=== PATIENT | female | born 1980 | race Caucasian/White ===

== ENCOUNTER 2019-03-18 12:03 | Outpatient (CLI) | payer OTHER, SELFPAY ==
[2019-03-18 13:37] LABS: Free T4 Free Thyroxine 0.81 ng/mL (0.78-2.19)
[2019-03-21 03:40] LABS: Thyroid Peroxidase Antibodies 3 IU/mL (<9)
[2019-03-21 06:18] LABS: Triiodothyronine T3 Free 2.3 pg/mL (2.3-4.2)
[2019-03-21 14:57] LABS: Thyroid Stimulating Immunoglob <89 % baseline (<140)
== END 2019-03-18 12:04 | disposition home or self-care (01) ==
PROVIDERS: Visit Provider Internal Medicine Endocrinology, Diabetes & Metabolism
DX: E06.3 Autoimmune thyroiditis (principal)
CPT/HCPCS: 36415; 84439; 84443; 84445; 84481; 86376

== ENCOUNTER 2019-07-28 10:39 | Outpatient (CLI) | payer OTHER, SELFPAY ==
[2019-07-28 11:54] LABS: Alanine Aminotransferase 26 U/L (4-35); Albumin Level 4.4 g/dL (3.5-5.1); Alkaline Phosphatase 60 U/L (38-126); Aspartate Amino Transferase 24 U/L (14-36); Blood Urea Nitrogen 15 mg/dL (7-17); Calcium 9.2 mg/dL (8.4-10.2); Carbon Dioxide 28 mmol/L (22-30); Chloride 104 mmol/L (98-107); Estimated Glomerular Filt Rate > 60; Glucose 103 mg/dL (65-105); Potassium 4.1 mmol/L (3.4-5.0); Sodium 138 mmol/L (137-145)
[2019-07-28 13:05] LABS: Free T4 Free Thyroxine 0.75 ng/mL (0.78-2.19)
[2019-07-30 03:58] LABS: Thyroid Peroxidase Antibodies 3 IU/mL (<9)
[2019-07-30 04:40] LABS: Triiodothyronine T3 Free 2.6 pg/mL (2.3-4.2)
[2019-08-01 13:55] LABS: Thyroid Stimulating Immunoglob <89 % baseline (<140)
== END 2019-07-28 10:40 | disposition home or self-care (01) ==
PROVIDERS: PCP Internal Medicine Endocrinology, Diabetes & Metabolism; Visit Provider Internal Medicine Endocrinology, Diabetes & Metabolism
DX: E06.3 Autoimmune thyroiditis (principal)
CPT/HCPCS: 36415; 80053; 84439; 84443; 84445; 84481; 86376

== ENCOUNTER 2020-03-10 09:57 | Outpatient (CLI) | payer SELFPAY ==
[2020-03-10 11:07] LABS: Alanine Aminotransferase 13 U/L (4-35); Albumin Level 3.9 g/dL (3.5-5.1); Alkaline Phosphatase 46 U/L (38-126); Anion Gap 5 mmol/L (8-16); Aspartate Amino Transferase 20 U/L (14-36); Bilirubin,Total 0.6 mg/dL (0.2-1.3); Blood Urea Nitrogen 11 mg/dL (7-17); Calcium 8.8 mg/dL (8.4-10.2); Carbon Dioxide 27 mmol/L (22-30); Chloride 107 mmol/L (98-107); Estimated Glomerular Filt Rate > 60; Glucose 101 mg/dL (65-105); Potassium 4.3 mmol/L (3.4-5.0); Sodium 139 mmol/L (137-145)
[2020-03-10 11:26] LABS: Free T4 Free Thyroxine 0.85 ng/mL (0.78-2.19)
[2020-03-10 12:22] LABS: Folic Acid > 20.0 ng/mL (2.76->20)
[2020-03-13 11:31] LABS: Triiodothyronine T3 Free 2.7 pg/mL (2.3-4.2)
== END 2020-03-10 09:58 | disposition home or self-care (01) ==
LOC: ANHLAB 09:59
PROVIDERS: PCP Internal Medicine Endocrinology, Diabetes & Metabolism; Visit Provider Internal Medicine Endocrinology, Diabetes & Metabolism
DX: E03.9 Hypothyroidism, unspecified (principal)
CPT/HCPCS: 36415; 80053; 82607; 82746; 84439; 84443; 84481

== ENCOUNTER 2020-06-23 10:25 | Outpatient (CLI) | payer BC, SELFPAY ==
[2020-06-23 11:55] LABS: Free T4 Free Thyroxine 1.03 ng/mL (0.78-2.19)
[2020-06-23 12:09] LABS: Thyroid Stimulating Hormone 0.721 uIU/mL (0.465-4.680)
[2020-06-23 12:44] LABS: Folic Acid 15.9 ng/mL (2.76->20)
[2020-06-26 16:44] LABS: Triiodothyronine T3 Free 2.6 pg/mL (2.3-4.2)
[2020-06-26 21:32] LABS: Thyroid Peroxidase Antibodies 4 IU/mL (<9)
[2020-06-29 14:39] LABS: Thyroid Stimulating Immunoglob <89 % baseline (<140)
== END 2020-06-23 10:26 | disposition home or self-care (01) ==
PROVIDERS: Visit Provider Nurse Practitioner Family
DX: E53.8 Deficiency of other specified B group vitamins (principal); E02 Subclinical iodine-deficiency hypothyroidism
CPT/HCPCS: 36415; 82607; 82746; 84439; 84443; 84445; 84481; 86376

== ENCOUNTER 2020-07-21 09:15 | Outpatient (CLI) | payer BC, SELFPAY ==
[2020-07-21 09:52] LABS: Basophils Percent Auto 0.4 % (0.2-1.2); Eosinophils Absolute Auto 0.1 K/mm3 (0-0.3); Eosinophils Percent Auto 1.3 % (0-4.4); Hematocrit 38.8 % (37.0-47.0); Hemoglobin 13.2 g/dL (12.0-15.0); Immature Granulocyte Absolute 0.02 K/mm3 (0.00-0.031); Immature Granulocyte Percent A 0.4 % (0-0.5); Lymphocytes Absolute Auto 1.17 K/mm3 (0.9-3.2); Lymphocytes Percent Auto 22.3 % (18.3-44.2); Mean Corpuscular Volume 93.9 fl (80-100); Mean Platelet Volume 10.1 fl (7.4-10.4); Monocytes Absolute Auto 0.3 K/mm3 (0.1-0.6); Monocytes Percent Auto 5.3 % (2.6-8.5); Neutrophils Absolute Auto 3.7 K/mm3 (1.3-6.7); Neutrophils Percent Auto 70.3 % (45.5-73.1); Platelet Count Result 212 k/mm3 (150-375); Red Blood Count 4.13 M/mm3 (4.2-5.4); Red Cell Distribution Width 11.9 % (11.5-14.5); White Blood Count 5.2 K/mm3 (4.5-10.0)
[2020-07-21 10:04] LABS: Cholesterol 161 mg/dL (0-200); HDL Direct 57 mg/dL; Triglycerides 100 mg/dL (<150)
[2020-07-21 10:15] LABS: LDL Cholesterol Direct 82 mg/dL
[2020-07-21 11:05] LABS: Rubella IgG Antibody 89.7 IU/ML
[2020-07-21 11:30] LABS: Hepatitis B Surface Anti Res Positive
== END 2020-07-21 09:16 | disposition home or self-care (01) ==
PROVIDERS: PCP Nurse Practitioner Family; Visit Provider Nurse Practitioner Family
DX: Z13.220 Encounter for screening for lipoid disorders (principal); Z00.00 Encounter for general adult medical examination without abnormal findings; Z02.0 Encounter for examination for admission to educational institution
CPT/HCPCS: 36415; 80061; 85025; 86706; 86735; 86762; 86765; 86787

== ENCOUNTER 2020-09-27 17:26 | Outpatient (CLI) | payer BC, SELFPAY ==
[2020-09-27 18:43] LABS: Free T4 Free Thyroxine 3.54 ng/mL (0.78-2.19)
[2020-09-27 20:36] LABS: Alanine Aminotransferase 18 U/L (4-35); Albumin Level 3.8 g/dL (3.5-5.1); Alkaline Phosphatase 103 U/L (38-126); Anion Gap 7 mmol/L (8-16); Aspartate Amino Transferase 19 U/L (14-36); Bilirubin,Total 0.7 mg/dL (0.2-1.3); Blood Urea Nitrogen 9 mg/dL (7-17); Calcium 9.6 mg/dL (8.4-10.2); Carbon Dioxide 23 mmol/L (22-30); Chloride 108 mmol/L (98-107); Estimated Glomerular Filt Rate > 60; Glucose 104 mg/dL (65-110); Potassium 4.5 mmol/L (3.4-5.0); Sodium 138 mmol/L (137-145)
[2020-09-27 21:07] LABS: Thyroid Stimulating Hormone < 0.015 uIU/mL (0.465-4.680)
[2020-09-27 21:42] LABS: Folic Acid 9.7 ng/mL (2.76->20)
[2020-10-03 08:14] LABS: Triiodothyronine T3 Free 6.6 pg/mL (2.3-4.2)
== END 2020-09-27 17:27 | disposition home or self-care (01) ==
LOC: ANHLAB 17:28
PROVIDERS: PCP Nurse Practitioner Family; Visit Provider Internal Medicine Endocrinology, Diabetes & Metabolism
DX: E53.8 Deficiency of other specified B group vitamins (principal); E03.9 Hypothyroidism, unspecified
CPT/HCPCS: 36415; 80053; 82607; 82746; 84439; 84443; 84481

== ENCOUNTER 2020-10-11 17:24 | Outpatient (CLI) | payer BC, SELFPAY ==
[2020-10-11 18:30] LABS: Thyroid Stimulating Hormone < 0.015 uIU/mL (0.465-4.680)
[2020-10-11 21:51] LABS: Free T4 Free Thyroxine 1.03 ng/mL (0.78-2.19)
[2020-10-13 13:57] LABS: Thyroid Stimulating Immunoglob <89 % baseline (<140)
[2020-10-15 04:59] LABS: Thyroid Peroxidase Antibodies 4 IU/mL (<9)
[2020-10-17 07:52] LABS: Triiodothyronine T3 Free 2.6 pg/mL (2.3-4.2)
== END 2020-10-11 17:25 | disposition home or self-care (01) ==
PROVIDERS: Visit Provider Internal Medicine Endocrinology, Diabetes & Metabolism
DX: E06.3 Autoimmune thyroiditis (principal)
CPT/HCPCS: 36415; 84439; 84443; 84445; 84481; 86376

== ENCOUNTER 2021-03-02 09:32 | Outpatient (CLI) | payer BC, SELFPAY ==
[2021-03-05 05:50] LABS: Triiodothyronine T3 Free 2.6 pg/mL (2.3-4.2)
== END 2021-03-02 09:33 | disposition home or self-care (01) ==
PROVIDERS: Visit Provider Internal Medicine Endocrinology, Diabetes & Metabolism
DX: E03.9 Hypothyroidism, unspecified (principal); Z13.220 Encounter for screening for lipoid disorders
CPT/HCPCS: 36415; 84439; 84443; 84481

== ENCOUNTER 2022-01-10 10:20 | Outpatient (CLI) | payer BC, SELFPAY ==
[2022-01-10 11:32] LABS: Free T4 Free Thyroxine 1.26 ng/mL (0.78-2.19)
[2022-01-10 11:46] LABS: Thyroid Stimulating Hormone 0.527 uIU/mL (0.465-4.680)
[2022-01-10 12:21] LABS: Folic Acid 12.9 ng/mL (2.76->20)
[2022-01-13 03:56] LABS: Triiodothyronine T3 Free 2.5 pg/mL (2.3-4.2)
[2022-01-13 05:13] LABS: Thyroid Peroxidase Antibodies 3 IU/mL (<9)
== END 2022-01-10 10:21 | disposition home or self-care (01) ==
LOC: ANHLAB 10:24
PROVIDERS: Visit Provider Nurse Practitioner
DX: E06.3 Autoimmune thyroiditis (principal); E53.8 Deficiency of other specified B group vitamins
CPT/HCPCS: 36415; 82607; 82746; 84439; 84443; 84481; 86376

== ENCOUNTER → 2022-10-05 11:34 | Outpatient (CLI) | payer BC, SELFPAY ==
--- NOTE | ~2022-10-05 | MM_ITS ---
EXAMINATION: MM scrn darian implant BI w kayley HISTORY: Screening mammogram TECHNIQUE: Craniocaudal and mediolateral oblique 3-D tomosynthesis images with implant displacement a nd synthetic 2-D images were generated. Craniocaudal and mediolateral oblique views of the breasts wi thout implant displacement were obtained using full field digital mammography. CAD analysis was submi tted and interpreted. COMPARISON: 11/18/2018 bilateral implant screening mammogram examination BREAST PARENCHYMAL COMPOSITION: There are scattered areas of fibroglandular density. FINDINGS: Status post bilateral augmentation mammoplasty. Slightly intervally enlarged circumscribed approximately 7.8 x 5 mm opacity in the upper outer left b reast, with lobular outline, likely a benign intramammary lymph node. There is no evidence of suspicious mass, calcification, or architectural distortion to suggest malign elio in either breast. There has been no suspicious interval change. IMPRESSION: 1. No mammographic evidence of malignancy. 2. Recommend routine screening mammography in one year. BI-RADS Category 2: Benign finding(s). Reviewed, dictated and finalized at location A.
== END ==
PROVIDERS: PCP Obstetrics & Gynecology; Visit Provider Obstetrics & Gynecology
DX: Z12.31 Encounter for screening mammogram for malignant neoplasm of breast (principal)
CPT/HCPCS: 77063; 77067

== ENCOUNTER 2024-03-20 15:48 | Outpatient (CLI) | payer OTHER, SELFPAY ==
--- NOTE | ~2024-03-20 | MM_ITS ---
EXAMINATION: MM scrn darian implant BI w kayley HISTORY: Screening mammogram TECHNIQUE: Craniocaudal and mediolateral oblique 3-D tomosynthesis images with implant displacement a nd synthetic 2-D images were generated. Craniocaudal and mediolateral oblique views of the breasts wi thout implant displacement were obtained using full field digital mammography. CAD analysis was submi tted and interpreted. COMPARISON: Comparison to multiple prior studies sequentially, with oldest reviewed study dated 08/2018. BREAST PARENCHYMAL COMPOSITION: Not dense: There are scattered areas of fibroglandular density. FINDINGS: There is no evidence of suspicious mass, calcification, or architectural distortion to sugg est malignancy in either breast. There has been no suspicious interval change. IMPRESSION: 1. No mammographic evidence of malignancy. 2. Recommend routine screening mammography in one year. BI-RADS Category 1: Negative Reviewed, dictated and finalized at location B. AL ACCOUNT DIRECTOR
== END 2024-03-20 15:49 | disposition home or self-care (01) ==
PROVIDERS: PCP Obstetrics & Gynecology; Visit Provider Nurse Practitioner Obstetrics & Gynecology
DX: Z12.31 Encounter for screening mammogram for malignant neoplasm of breast (principal)
CPT/HCPCS: 77063; 77067